=== PATIENT | female | born 1990 | race Caucasian/White ===

== ENCOUNTER 2018-12-27 08:19 | Emergency (ER) | payer BC ==
[2018-12-27] MEDS ORDERED: ACETAMINOPHEN TAB 500 MG TAB PO STA (08:26)
[2018-12-27] MEDS ORDERED: IBUPROFEN 600 MG STARTER PACK 4 TAB BTL PO STA (08:26)
[2018-12-27] MEDS ORDERED: OSELTAMIVIR 75 MG CAP PO STA (08:27)
[2018-12-27] MEDS ORDERED: SODIUM CHLORIDE 0.9% 1,000 ML IV ONE (08:31)
[2018-12-27] MEDS ORDERED: IPRATROPIUM-ALBUTEROL 3 ML NEB INHALATION STA (08:31)
[2018-12-27] MEDS ORDERED: ONDANSETRON 4 MG/2 ML VIAL IVP STA (08:32)
--- NOTE | 2018-12-27 08:36 | ED ---
Fever HPI - General Chief Complaint: Fever Stated Complaint: Congestion Time Seen by Provider: 12/27/18 08:21 Source: patient, RN notes reviewed, old records reviewed Mode of arrival: ambulatory Limitations: no limitations - History of Present Illness Initial Comments: Patient is a 28-year-old female who presents emergency room today with 1 day of fever or chills, cough congestion and multiple episodes of vomiting. Patient states she's not been able to hold any of her medications down including Motrin or Tylenol. She does state that her daughter tested positive for flu a few days ago. Patient complains of bodyaches. She denies any hematemesis or changes in stools or urination. She denies chance of . Patient states that she's had no associated sick contacts that she is aware of. - Related Data Home Medications Medication Instructions Recorded Confirmed Cholecalciferol [Vitamin D3] 1,000 unit PO DAILY 12/27/18 12/27/18 Ergocalciferol [Vitamin D2 50,000 units PO WE 12/27/18 12/27/18 (DRISDOL)] Sertraline [Zoloft] 50 mg PO DAILY 12/27/18 12/27/18 Previous Rx's Medication Instructions Recorded Albuterol Inhaler [Ventolin Hfa 1 - 2 puff INHALATION RT-Q6H PRN 12/27/18 Inhaler] #1 inhaler Ondansetron [Zofran] 4 mg PO Q8HR PRN #20 tab 12/27/18 Oseltamivir [Tamiflu] 75 mg PO Q12HR #10 cap 12/27/18 Allergies Allergy/AdvReac Type Severity Reaction Status Date / Time No Known Allergies Allergy Verified 12/27/18 09:01 Review of Systems ROS Statement: Those systems with pertinent positive or pertinent negative responses have been documented in the HPI. ROS Other: All systems not noted in ROS Statement are negative. Past Medical History Past Medical History: No Reported History Additional Past Medical History / Comment(s): slightly elevated b/p during end of only. no prev hx. History of Any Multi-Drug Resistant Organisms: None Reported Additional Past Surgical History / Comment(s): left knee 2002, myringotomy as child Past Psychological History: Depression Smoking Status: Never smoker Past Alcohol Use History: Occasional Past Drug Use History: None Reported - Past Family History Father Family Medical History: No Reported History General Exam - General Exam Comments Initial Comments: Patient is alert and oriented 28-year-old female. Patient appears dehydrated, weak Limitations: no limitations General appearance: alert, in no apparent distress Head exam: Present: atraumatic, normocephalic, normal inspection Eye exam: Present: normal appearance, PERRL, EOMI. Absent: scleral icterus, conjunctival injection, periorbital swelling ENT exam: Present: normal exam, mucous membranes dry. Absent: normal oropharynx (Erythema), mucous membranes moist, TM's normal bilaterally ( Erythematous TMs. No evidence of effusion) Neck exam: Present: normal inspection. Absent: tenderness, meningismus, lymphadenopathy Respiratory exam: Present: normal lung sounds bilaterally Cardiovascular Exam: Present: regular rate, normal rhythm, normal heart sounds. Absent: systolic murmur, diastolic murmur, rubs, gallop, clicks GI/Abdominal exam: Present: soft, normal bowel sounds. Absent: distended, tenderness, guarding, rebound, rigid Extremities exam: Present: normal inspection, full ROM, normal capillary refill. Absent: tenderness, pedal edema, joint swelling, calf tenderness Back exam: Present: normal inspection Neurological exam: Present: alert, oriented X3, CN II-XII intact Psychiatric exam: Present: normal affect, normal mood Skin exam: Present: warm, dry, intact, normal color. Absent: rash Course Vital Signs 12/27/18 12/27/18 12/27/18 08:21 09:36 10:05 Temperature 102.9 F H 100.3 F H Pulse Rate 130 H 125 H 122 H Respiratory 20 18 Rate Blood Pressure 110/56 97/59 O2 Sat by Pulse 95 94 L Oximetry Medical Decision Making - Lab Data Lab Results 12/27/18 12/27/18 12/27/18 Range/Units 08:39 08:58 08:58 Urine Color Yellow Urine Appearance Cloudy H (Clear) Urine pH 5.5 (5.0-8.0) Ur Specific [place] 1.030 (1.001-1.035) Urine Protein 1+ H (Negative) Urine Glucose (UA) Negative (Negative) Urine Ketones Trace H (Negative) Urine Blood Negative (Negative) Urine Nitrite Negative (Negative) Urine Bilirubin Negative (Negative) Urine Urobilinogen <2.0 (<2.0) mg/dL Ur Leukocyte Esterase Negative (Negative) Urine RBC 2 (0-5) /hpf Urine WBC 2 (0-5) /hpf Ur Squamous Epith Cells 18 H (0-4) /hpf Urine Bacteria Rare H (None) /hpf Urine Mucus Many H (None) /hpf Urine HCG, Qual Not Detected (Not Detectd) Influenza Type A RNA Detected H (Not Detectd) Influenza Type B (PCR) Not Detected (Not Detectd) - Radiology Data Radiology results: report reviewed Chest x-rays negative for any acute cardio coronary process. Disposition Clinical Impression: Influenza A, Nausea & vomiting, Dehydration Disposition: HOME SELF-CARE Condition: Good Instructions (If sedation given, give patient instructions): Influenza (ED) Additional Instructions: Patient advised to follow-up with primary care provider. Patient should alternate Motrin and Tylenol. Use nausea medicine instructed. SOAKING USE INHALER NEEDED FOR SHORTNESS OF BREATH. PATIENT SHOULD REST, REMAIN HYDRATED. Prescriptions: Albuterol Inhaler [Ventolin Hfa Inhaler] 1 - 2 puff INHALATION RT-Q6H PRN #1 inhaler PRN Reason: Shortness Of Breath Ondansetron [Zofran] 4 mg PO Q8HR PRN #20 tab PRN Reason: Nausea Oseltamivir [Tamiflu] 75 mg PO Q12HR #10 cap Is patient prescribed a controlled substance at d/c from ED?: No Referrals: Sujit Perez MD [Primary Care Provider] - 1-2 days Time of Disposition: 10:43
[2018-12-27 09:45] LABS: Appearance,Urine Cloudy (Clear); Bacteria,Urine Rare /hpf; Bilirubin,Urine Negative (Negative); Blood,Urine Negative (Negative); Color,Urine Yellow; Glucose,Urine (UA) Negative (Negative); Ketones,Urine Trace (Negative); Leukocyte Esterase,Urine Negative (Negative); Mucus,Urine Many /hpf; Nitrite,Urine Negative (Negative); PH, Urine 5.5 (5.0-8.0); Protein,Urine 1+ (Negative); RBC,Urine 2 /hpf (0-5); Squamous Epithelial Cell,Urine 18 /hpf (0-4); Urobilinogen,Urine <2.0 mg/dL (<2.0); WBC,Urine 2 /hpf (0-5)
[2018-12-27 10:09] VITALS: RESP 18
--- NOTE | 2018-12-27 10:24 | XR ---
EXAMINATION TYPE: XR chest 2V DATE OF EXAM: 12/27/2018 COMPARISON: NONE HISTORY: Chest pain TECHNIQUE: Frontal and lateral views of the chest are obtained. FINDINGS: There is no focal air space opacity, pleural effusion, or pneumothorax seen. The cardiac silhouette size is within normal limits. The osseous structures are intact. IMPRESSION: No acute cardiopulmonary process.
[2018-12-27 11:15] VITALS: BP 110/63; PULSE 95; TEMP 98.8
== END 2018-12-27 11:14 | disposition home or self-care (01) ==
LOC: MERGE 08:19 → EC 08:19
DX: J10.1 Influenza due to other identified influenza virus with other respiratory manifestations (principal); E86.0 Dehydration; R11.2 Nausea with vomiting, unspecified; F32.9 Major depressive disorder, single episode, unspecified; Z79.899 Other long term (current) drug therapy
CPT/HCPCS: 94640; 81001; 81025; 87502; 71046; 99284; 96374; 96361; J2405

== ENCOUNTER → 2019-08-31 | Outpatient (CLI) | payer OTHER ==
[2019-08-31 19:29] LABS: Total Protein,CSF 36 mg/dL (12-60)
[2019-08-31 20:13] LABS: Appearance,CSF Clear; CSF Tube Number 4
[2019-08-31 20:14] LABS: CSF Tube Volume 3; Nucleated Cells, CSF 3 u/L (0-5); Red Blood Cell,CSF 0 u/L (0-10)
== END | disposition home or self-care (01) ==
LOC: LABWHC1 15:00
PROVIDERS: ATTEND Nurse Practitioner Acute Care
DX: R42 Dizziness and giddiness (principal); R20.2 Paresthesia of skin; R90.82 White matter disease, unspecified
CPT/HCPCS: 36415; 82040; 82042; 82784; 83873; 83916; 84157; 87801; 89050

== ENCOUNTER → 2019-09-14 | Outpatient (CLI) | payer OTHER | END | disposition home or self-care (01) | LOC: LABWHC1 16:46 | PROVIDERS: ATTEND Nurse Practitioner Acute Care | DX: G35 Multiple sclerosis (principal); E55.9 Vitamin D deficiency, unspecified | CPT/HCPCS: 36415; 82306; 86787 ==

== ENCOUNTER → 2019-11-24 | Outpatient (CLI) | payer OTHER ==
--- NOTE | 2019-11-24 22:15 | CONS ---
CONSULTATION REASON FOR CONSULTATION: Hypersomnia. 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 She was recently diagnosed having MS and the diagnosis was established by lumbar puncture and she has not been started on treatment yet. At the same time, the patient has features of obstructive sleep apnea. She was referred to me for sleep apnea evaluation knowing that she snores or quits breathing. She has been occasional waking up gasping for air. Her mother has obstructive sleep apnea. She goes to bed between 8-9 p.m. wakes up at 5 a.m. in the morning. She is living with her boyfriend and she has a 3-year-old child at home. Her weight is up and currently her BMI is down to 39.7. No substance abuse. She takes caffeinated beverages in the morning to keep herself well stimulated. No history of any motor vehicle accident because of feeling drowsy or sleepy. No head trauma. No history of any stroke. PAST MEDICAL HISTORY: 1. Obesity. 2. Multiple sclerosis. PAST SURGICAL HISTORY: Includes lumbar puncture, , surgeries on her eardrums and knee surgery. DRUG ALLERGIES: Not known. OUTPATIENT MEDICATION LIST: Includes vitamin D 58780 units once a week. SOCIAL HISTORY: Nonsmoker. No history of alcohol. No history of IV drugs. FAMILY HISTORY: Her mother has obstructive sleep apnea and she has also been diagnosed having MS. REVIEW OF SYSTEMS: Fourteen-point review of system was done. Positive findings are mentioned in history of present illness. She is currently tired and fatigued. No insomnia. No sleepwalking. No restlessness in lower extremities. She was having some numbness and tingling in lower extremities bilaterally. No ataxia. No vision loss. No double vision. No difficulty in swallowing. No headaches. No nighttime heartburn, chest pain, shortness of breath, cough or sputum production. PHYSICAL EXAMINATION: VITAL SIGNS: BP is 123/80, pulse 90. Respirations 16, temp 98.5. Saturation 99% on room air. Height is 5 feet 2 inches, weight 221, and neck size 15.5 inches, BMI 39.7. General appearance, calm and comfortable. Head is atraumatic, normocephalic. NECK: Supple. No JVD. No goiter or neck masses. Bilateral tonsillar enlargement. Mallampati class 2. LUNGS: Clear to auscultation. HEART: Sounds are regular rate and rhythm. Normal S1, S2. No S3, S4. No murmurs. ABDOMEN: Soft, nontender. No organomegaly. EXTREMITIES: No edema. No cyanosis or clubbing. NEUROLOGIC: She is awake, and alert. There are no focal neurological deficits. PSYCHIATRIC: Negative for anxiety or depression. IMPRESSION: 1. Chronic hypersomnia Tok score is currently at 15, rule out obstructive sleep apnea. The patient has symptoms anatomic features to support that. Hypersomnia and fatigue could be also manifestations of multiple sclerosis. 2. Obesity with a BMI of 39.7. 3. Tonsillar enlargement. PLAN: 1. Proceed with a screening polysomnogram. 2. Encourage weight loss. 3. Follow up with Neurology regarding treatment of her MS. 4. Will follow up with me in the sleep center after the sleep study is completed to discuss treatment options especially if diagnosis of sleep apnea is established. We will continue to follow. MMODL / IJN: [id number] /
== END | disposition home or self-care (01) ==
LOC: SLEEP 14:32
PROVIDERS: ATTEND Internal Medicine Critical Care Medicine
DX: G47.19 Other hypersomnia (principal); E66.9 Obesity, unspecified; J35.1 Hypertrophy of tonsils; R53.83 Other fatigue; Z83.6 Family history of other diseases of the respiratory system; Z68.39 Body mass index [BMI] 39.0-39.9, adult; Z79.899 Other long term (current) drug therapy
CPT/HCPCS: 99211

== ENCOUNTER → 2020-03-18 | Outpatient (CLI) | payer OTHER ==
[2020-03-18 09:27] LABS: Basophils # (A) 0.1 k/uL (0-0.2); Basophils % (A) 1 %; Eosinophils # (A) 0.1 k/uL (0-0.7); Eosinophils % (A) 1 %; HCT 43.2 % (34.0-46.0); HGB 13.9 gm/dL (11.4-16.0); Lymphocytes % (A) 24 %; MCH 28.6 pg (25.0-35.0); MCHC 32.1 g/dL (31.0-37.0); MCV 89.2 fL (80.0-100.0); Mean Platelet Volume 7.4; Monocytes # (A) 0.4 k/uL (0-1.0); Monocytes % (A) 5 %; Neutrophils # (A) 5.5 k/uL (1.3-7.7); Neutrophils % (A) 67 %; Platelet Count 288 k/uL (150-450); RBC 4.84 m/uL (3.80-5.40); RDW 13.9 % (11.5-15.5); WBC 8.2 k/uL (3.8-10.6)
[2020-03-18 15:55] LABS: African American GFR (CKD) 113.9 (60.0-200.0); Albumin 4.1 g/dL (3.80-4.90); Albumin/Globulin Ratio 1.64 (1.60-3.17); Anion Gap 9.2 mmol/L (4.00-12.00); BUN/Creat Ratio 18.75 Ratio (12.00-20.00); Calcium 9.3 mg/dL (8.7-10.3); Carbon Dioxide 24.8 mmol/L (21.6-31.8); Globulin 2.5 g/dL (1.6-3.3); Non-African American GFR(CKD) 98.2 (60.0-200.0); Potassium 4.3 mmol/L (3.5-5.5); Total Bilirubin 0.4 mg/dL (0.2-1.2); Total Protein 6.6 g/dL (6.2-8.2)
== END | disposition home or self-care (01) ==
LOC: LABWHC1 08:32
PROVIDERS: ATTEND Nurse Practitioner Acute Care
DX: G35 Multiple sclerosis (principal); E55.9 Vitamin D deficiency, unspecified; Z51.81 Encounter for therapeutic drug level monitoring
CPT/HCPCS: 36415; 80053; 82306; 82607; 84207; 85025; 86787

== ENCOUNTER → 2020-04-29 | Outpatient (CLI) | payer OTHER | END | disposition home or self-care (01) | LOC: LABWHC1 13:25 | PROVIDERS: ATTEND Nurse Practitioner Acute Care | DX: G35 Multiple sclerosis (principal); Z51.81 Encounter for therapeutic drug level monitoring | CPT/HCPCS: 36415; 86787; 87798 ==

== ENCOUNTER → 2020-05-27 | Outpatient (CLI) | payer OTHER | END | disposition home or self-care (01) | LOC: LABWHC1 12:02 | PROVIDERS: ATTEND Nurse Practitioner Acute Care | DX: G35 Multiple sclerosis (principal); Z51.81 Encounter for therapeutic drug level monitoring | CPT/HCPCS: 36415; 86705; 87798 ==

== ENCOUNTER → 2020-07-01 | Outpatient (CLI) | payer OTHER ==
--- NOTE | 2020-07-01 13:13 | XR ---
EXAMINATION TYPE: XR lumbosacral spine min 4V DATE OF EXAM: 07/01/2020 CLINICAL HISTORY: Dorsalgia. Pain of lower back. Left leg numbness. TECHNIQUE: Frontal, lateral, and oblique images of the lumbar spine are obtained. COMPARISON: None FINDINGS: There are 5 lumbar type vertebral bodies identified. The lumbar spine shows satisfactory alignment without evidence of acute fracture or dislocation. Vertebral body heights and disk space he ights are within normal limits. Mild endplate anterior marginal osteophytic spurring. Oblique images show no evidence of spondylolysis. No evidence of spondylolisthesis. Normal osseous mineralization. T he overlying soft tissue appears unremarkable. IMPRESSION: 1. No acute fracture or dislocation is seen in the lumbar spine. 2. Mild degenerative disc disease endplate spurring.
[2020-07-01 16:38] LABS: Chol/HDL Ratio 3.31
== END | disposition home or self-care (01) ==
LOC: LABWHC1 08:45
PROVIDERS: ATTEND Physician Assistant
DX: M51.36 Other intervertebral disc degeneration, lumbar region (principal); Z13.220 Encounter for screening for lipoid disorders
CPT/HCPCS: 36415; 72110; 80061

== ENCOUNTER 2020-09-29 10:34 | Day surgery (SDC) | payer OTHER ==
[2020-09-27 17:49] VITALS: BMI 38.7
[~2020-09-29 10:34] MED LIST: LACTATED RINGERS 1,000 ML IV SCH
[2020-09-29 10:51] VITALS: RESP 16; TEMP 98.5
[2020-09-29] MEDS ORDERED: MIDAZOLAM 2 MG/2 ML VIAL ONE (11:53)
[2020-09-29] MEDS ORDERED: fentaNYL (PF) 50 MCG/ML 2 ML AMP ONE (11:53)
[2020-09-29] MEDS ORDERED: PROPOFOL 10 MG/ML 20 ML VIAL IV ONE (11:53)
--- NOTE | 2020-09-29 12:02 | P.GSHP ---
History of Present Illness H&P Date: 09/29/20 Chief Complaint: GI bleed, internal hemorrhoids Is a 28-year-old female presents today for colonoscopy. Patient has issues with hemorrhoids. He is also some rectal bleeding. Past Medical History Past Medical History: No Reported History Additional Past Medical History / Comment(s): Hx pulmonary valve stenosis at . slightly elevated b/p R/T Rx in past. Multiple Sclerosis, NT BLE. 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, Dental procedures Past Anesthesia/Blood Transfusion Reactions: No Reported Reaction Smoking Status: Never smoker - Past Family History Father Family Medical History: No Reported History Brother(s) Family Medical History: Cancer Additional Family Medical History / Comment(s): skin cancer Medications and Allergies Home Medications Medication Instructions Recorded Confirmed Type Cholecalciferol [Vitamin D3] 2,000 unit PO DAILY 12/27/18 09/29/20 History Acetaminophen [Tylenol Extra 500 - 1,000 mg PO DIRECTED PRN 09/27/20 09/29/20 History Strength] Allergies Allergy/AdvReac Type Severity Reaction Status Date / Time No Known Allergies Allergy Verified 09/29/20 11:00 Surgical - Exam Vital Signs Temp Pulse Resp BP Pulse Ox 98.5 F 77 16 146/97 100 09/29/20 10:48 09/29/20 10:48 09/29/20 10:48 09/29/20 10:48 09/29/20 10:48 - General well developed, well nourished, no distress - Eyes PERRL - ENT normal pinna - Neck no masses - Respiratory normal expansion - Cardiovascular Rhythm: regular - Abdomen Abdomen: soft, non tender Assessment and Plan Assessment: History of hemorrhoids. Rectal bleeding. We'll perform colonoscopy.
--- NOTE | 2020-09-29 12:14 | P.OP ---
Date of Procedure: 09/29/20 Preoperative Diagnosis: GI bleed Postoperative Diagnosis: Internal and external hemorrhoids Procedure(s) Performed: Colonoscopy Anesthesia: MAC Surgeon: Gian Son Pathology: none sent Condition: stable Disposition: PACU Description of Procedure: The patient's placed on the endoscopy table in the lateral position.. She received IV sedation. Digital rectal exam was performed which revealed internal and external hemorrhoids. The possible colonoscope was then placed patient anus and passed throughout the entire colon. The ileocecal valve was visualized. The cecum, ascending and transverse colon appeared normal. The descending and sigmoid colon appeared normal. Scope was withdrawn for patient. There is no evidence of any GI bleed. Resume that any bleeding was due to hemorrhoids
[2020-09-29 12:34] VITALS: BP 118/81; PULSE 79
== END 2020-09-29 12:42 | disposition home or self-care (01) ==
LOC: ORWHC2ENDO 10:34
PROVIDERS: ATTEND Surgery
DX: K64.8 Other hemorrhoids (principal); K64.4 Residual hemorrhoidal skin tags; K62.5 Hemorrhage of anus and rectum; K92.2 Gastrointestinal hemorrhage, unspecified; G35 Multiple sclerosis; Z98.890 Other specified postprocedural states; Z80.8 Family history of malignant neoplasm of other organs or systems; E66.9 Obesity, unspecified; Z68.38 Body mass index [BMI] 38.0-38.9, adult; Z79.899 Other long term (current) drug therapy
CPT/HCPCS: 81025; 45378; J2250; J3010; J2704

== ENCOUNTER 2020-09-30 05:54 | Day surgery (SDC) | payer OTHER ==
[2020-09-27 17:31] VITALS: BMI 38.7
[~2020-09-30 05:54] MED LIST changes: +ACETAMINOPHEN TAB 500 MG TAB PO ONE; +DEXAMETHASONE SOD PHOSPHATE 4 MG/ML 1 ML VIAL IV ONE; +HYDROmorphone 0.5 MG/0.5 ML SYRINGE IVP PRN; +LIDOCAINE 1% (10MG/ML) FOR IV START INTRADERMA PRN; +ONDANSETRON 4 MG/2 ML VIAL IVP ONE; +Pre Op ABX Message 1 EACH MISC MISCELLANE ONE; +SCOPOLAMINE 1.5MG/72HR PATCH TRANSDERM ONE
[2020-09-30] MEDS ORDERED: HEPARIN SODIUM,PORCINE 5,000 UNIT/ML 1 ML VIAL SQ ONE (06:00)
[2020-09-30] MEDS ORDERED: NA PHOS,M-B/NA PHOS,DI-BA 133 ML ENEMA RECTAL ONE (06:17)
[2020-09-30] MEDS ORDERED: LACTATED RINGERS 1,000 ML IV ONE (06:17)
[2020-09-30] MEDS ORDERED: LIDOCAINE 1% INJ 10MG/ML (20 ML MDV) ONE (07:49)
[2020-09-30] MEDS ORDERED: MIDAZOLAM 2 MG/2 ML VIAL ONE (07:49)
[2020-09-30] MEDS ORDERED: PROPOFOL 10 MG/ML 20 ML VIAL IV ONE (07:49)
[2020-09-30] MEDS ORDERED: SUCCINYLCHOLINE CHLORIDE VIAL 200 MG/10 ML VIAL IV ONE (07:49)
[2020-09-30] MEDS ORDERED: fentaNYL (PF) 50 MCG/ML 2 ML AMP ONE (07:49)
[2020-09-30] MEDS ORDERED: KETOROLAC 15 MG/ML 1 ML VIAL ONE (07:49)
[2020-09-30] MEDS ORDERED: SODIUM CHLORIDE 0.9% 50 ML with ceFAZolin 2,000 MG IV ONE ×2 (08:10)
[2020-09-30] MEDS ORDERED: BUPIVACAINE (PF) 0.5% 30 ML VIAL SQ ONE (08:19)
[2020-09-30] MEDS ORDERED: GELATIN SPONGE,ABSORB (LARGE) 1 EACH SPONGE TOPICAL ONE (08:33)
--- NOTE | 2020-09-30 08:44 | P.GSHP ---
History of Present Illness H&P Date: 09/30/20 Chief Complaint: Internal and external hemorrhoids This is a 30-year-old female who presents today for internal and external hemorrhoids. Patient had complaints of anal pain and bleeding and itching. Past Medical History Past Medical History: No Reported History Additional Past Medical History / Comment(s): Hx pulmonary valve stenosis at . slightly elevated b/p R/T Rx in past. Multiple Sclerosis, NT BLE. 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, Dental procedures Past Anesthesia/Blood Transfusion Reactions: No Reported Reaction Smoking Status: Never smoker - Past Family History Father Family Medical History: No Reported History Brother(s) Family Medical History: Cancer Additional Family Medical History / Comment(s): skin cancer Medications and Allergies Home Medications Medication Instructions Recorded Confirmed Type Cholecalciferol [Vitamin D3] 2,000 unit PO DAILY 12/27/18 09/29/20 History Acetaminophen [Tylenol Extra 500 - 1,000 mg PO DIRECTED PRN 09/27/20 09/29/20 History Strength] Allergies Allergy/AdvReac Type Severity Reaction Status Date / Time No Known Allergies Allergy Verified 09/29/20 11:00 Surgical - Exam Vital Signs Temp Pulse Resp BP Pulse Ox 97.8 F 85 18 144/82 97 09/30/20 06:16 09/30/20 06:16 09/30/20 06:16 09/30/20 06:16 09/30/20 06:16 - General well developed, well nourished, no distress - Eyes PERRL - ENT normal pinna - Neck no masses - Respiratory normal expansion - Cardiovascular Rhythm: regular - Abdomen Abdomen: soft, non tender - Rectum Internal and external hemorrhoids Assessment and Plan Assessment: Internal and external hemorrhoids. We'll perform hemorrhoidectomy.
--- NOTE | 2020-09-30 08:51 | P.OP ---
Date of Procedure: 09/30/20 Preoperative Diagnosis: Internal and external hemorrhoids Postoperative Diagnosis: Internal and external hemorrhoids Procedure(s) Performed: Internal and external hemorrhoidectomy Anesthesia: MAHOGANY Surgeon: Gian Son Estimated Blood Loss (ml): 10 Pathology: other (Internal and external hemorrhoids) Condition: stable Disposition: PACU Description of Procedure: The patient's placed on the operative table in the prone position after receiving general anesthesia. Her anus was prepped and draped usual fashion. The anus was injected 1% local Xylocaine. The patient had a large left anterior hemorrhoidal column and a right posterior hemorrhoid column. The bivalved anal retractor was placed anus. The right posterior hemorrhoidal column was grasped with a Allis clamp and then using Harmonic scissors the rectus performed. The mucosal defect was reapproximated using 3-0 Vicryl suture. Next the left lateral hemorrhoidal column was dissected in identical fashion. The is suspected for hemostasis. There is no bleeding seen. The patient was sent to recovery room in stable condition.
[2020-09-30 08:57] VITALS: TEMP 98
[2020-09-30 09:58] VITALS: RESP 18
[2020-09-30 10:27] VITALS: BP 128/74; PULSE 75
== END 2020-09-30 10:40 | disposition home or self-care (01) ==
LOC: OR 05:54
PROVIDERS: ATTEND Surgery
DX: K64.4 Residual hemorrhoidal skin tags (principal); K64.8 Other hemorrhoids; G35 Multiple sclerosis; Z98.890 Other specified postprocedural states; Z80.8 Family history of malignant neoplasm of other organs or systems
CPT/HCPCS: 81025; 88304; 46255; J2250; J0330; J1644; J1100; J2405; J0690; J2001; J3010; J1885; J2704

== ENCOUNTER → 2021-03-31 | Outpatient (CLI) | payer OTHER ==
[2021-03-31 19:24] LABS: African American GFR (CKD) 139.8 (60.0-200.0); Albumin 4.2 g/dL (3.80-4.90); Albumin/Globulin Ratio 1.5 (1.60-3.17); Anion Gap 7.2 mmol/L (4.00-12.00); Calcium 9.1 mg/dL (8.7-10.3); Carbon Dioxide 26.8 mmol/L (21.6-31.8); Globulin 2.8 g/dL (1.6-3.3); Non-African American GFR(CKD) 120.6 (60.0-200.0); Potassium 4.6 mmol/L (3.5-5.5); Total Bilirubin 0.5 mg/dL (0.2-1.2)
[2021-03-31 20:51] LABS: Basophils # (A) 0.02 X 10*3/uL (0.00-0.10); Basophils % (A) 0.5 %; Eosinophils % (A) 2.4 %; HCT 40.4 % (37.2-46.3); Lymphocytes # (A) 1.39 X 10*3/uL (0.90-5.00); MCH 28.6 pg (27.0-32.0); MCHC 32.2 g/dL (32.0-37.0); Mean Platelet Volume 11.7 fL (9.5-12.2); Monocytes # (A) 0.37 X 10*3/uL (0.20-1.00); Neutrophils % (A) 53.9 %; Platelet Count 283 X 10*3/uL (140-440); RBC 4.54 X 10*6/uL (4.10-5.20); RDW 13.3 % (11.5-14.5); WBC 4.09 X 10*3/uL (4.50-10.00)
== END | disposition home or self-care (01) ==
LOC: LABWHC1 10:41
PROVIDERS: ATTEND Nurse Practitioner Acute Care
DX: G35 Multiple sclerosis (principal); E55.9 Vitamin D deficiency, unspecified; Z51.81 Encounter for therapeutic drug level monitoring
CPT/HCPCS: 36415; 80053; 82306; 85025

== ENCOUNTER → 2021-04-19 | Outpatient (CLI) | payer OTHER ==
[~2021-04-19] MED LIST changes: -ACETAMINOPHEN TAB 500 MG TAB PO ONE; -DEXAMETHASONE SOD PHOSPHATE 4 MG/ML 1 ML VIAL IV ONE; -HYDROmorphone 0.5 MG/0.5 ML SYRINGE IVP PRN; -LACTATED RINGERS 1,000 ML IV SCH; -LIDOCAINE 1% (10MG/ML) FOR IV START INTRADERMA PRN; -ONDANSETRON 4 MG/2 ML VIAL IVP ONE; -Pre Op ABX Message 1 EACH MISC MISCELLANE ONE; -SCOPOLAMINE 1.5MG/72HR PATCH TRANSDERM ONE; +cefTRIAXone 500 MG VIAL IM NR
[2021-04-19 14:11] VITALS: BP 133/83; PULSE 84; RESP 16; TEMP 98.9
== END | disposition home or self-care (01) ==
LOC: PROCWHC3 13:30
PROVIDERS: ATTEND Physician Assistant
DX: A54.02 Gonococcal vulvovaginitis, unspecified (principal)
CPT/HCPCS: 96372; J0696

== ENCOUNTER → 2022-01-16 | Outpatient (CLI) | payer OTHER ==
[2022-01-16 18:20] LABS: Basophils # (A) 0.02 X 10*3/uL (0.00-0.10); Basophils % (A) 0.5 %; Eosinophils # (A) 0.13 X 10*3/uL (0.04-0.35); HCT 39.3 % (37.2-46.3); Immature Grans, Automated 0.2 %; Lymphocytes # (A) 1.46 X 10*3/uL (0.90-5.00); Lymphocytes % (A) 33.3 %; MCH 28.6 pg (27.0-32.0); MCHC 33.1 g/dL (32.0-37.0); MCV 86.4 fL (80.0-97.0); Mean Platelet Volume 11.6 fL (9.5-12.2); Monocytes # (A) 0.37 X 10*3/uL (0.20-1.00); Monocytes % (A) 8.4 %; NRBC Per 100 WBC 0 /100 WBCS (0.0-0.0); Neutrophils % (A) 54.6 %; Platelet Count 259 X 10*3/uL (140-440); RBC 4.55 X 10*6/uL (4.10-5.20); RDW 13.7 % (11.5-14.5); WBC 4.39 X 10*3/uL (4.50-10.00)
[2022-01-16 19:05] LABS: African American GFR (CKD) 135.5 (60.0-200.0); Albumin 4.3 g/dL (3.8-4.9); Albumin/Globulin Ratio 1.55 (1.60-3.17); Anion Gap 13.9 mmol/L (10.00-18.00); BUN/Creat Ratio 14.15 Ratio (12.00-20.00); Blood Urea Nitrogen 9.1 mg/dL (9.0-27.0); Calcium 9.4 mg/dL (8.7-10.3); Carbon Dioxide 22.8 mmol/L (20.0-27.5); Globulin 2.8 g/dL (1.6-3.3); Non-African American GFR(CKD) 116.9 (60.0-200.0); Potassium 4.5 mmol/L (3.5-5.5); Total Bilirubin 0.3 mg/dL (0.30-1.20); Total Protein 7.1 g/dL (6.2-8.2)
== END | disposition home or self-care (01) ==
LOC: LABWHC1 12:02
PROVIDERS: ATTEND Psychiatry & Neurology Neurology
DX: G35 Multiple sclerosis (principal); E55.9 Vitamin D deficiency, unspecified; E53.9 Vitamin B deficiency, unspecified
CPT/HCPCS: 36415; 80053; 82306; 82607; 84207; 85025

== ENCOUNTER 2022-06-03 16:12 | Observation (INO) | payer OTHER ==
[2022-06-03] MEDS ORDERED: diphenhydrAMINE 50 MG/ML 1 ML VIAL IVP STA (16:20)
[2022-06-03] MEDS ORDERED: MORPHINE SULFATE 4 MG/ML SYRINGE IV STA (16:20)
[2022-06-03] MEDS ORDERED: ONDANSETRON 4 MG/2 ML VIAL IVP STA (16:20)
[2022-06-03] MEDS ORDERED: KETOROLAC 15 MG/ML 1 ML VIAL IVP STA (16:20)
[2022-06-03] MEDS ORDERED: PANTOPRAZOLE 40 MG/10 ML VIAL IVP STA (16:20)
[2022-06-03] MEDS ORDERED: SODIUM CHLORIDE 0.9% 1,000 ML IV STA (16:20)
--- NOTE | 2022-06-03 16:28 | ED ---
General Adult HPI - General Chief complaint: Vaginal Bleeding Stated complaint: Abd Pain Time Seen by Provider: 06/03/22 16:13 Source: patient, EMS, RN notes reviewed, old records reviewed Mode of arrival: EMS Limitations: no limitations - History of Present Illness Initial comments: Patient is a 31-year-old female with past medical history remarkable for MS who is and actively miscarrying beginning at approximately 6 weeks gestation presents emergency department for worsening lower abdominal pain as well as pelvic pain. Patient has been actively miscarrying for approximately 10-12 days at this point. Over the last 3-4 days she has been having heavier bleeding. She has seen her BATTERY MECHANIC and they're aware of the miscarriage. Was being managed medically at home. Was started on Tylenol threes but pain got worse today which is why she presents for further evaluation. States that the bleeding as well as tissue present in the vaginal discharge has decreased. Endorses 1 episode of vomiting as numbers nonbloody. Endorses nausea when the pain is severe. States the Tylenol starter pack was not improving her symptoms which is why she called EMS today. Denies any worsening weakness. Denies any chest pain, shortness breath. Denies any urinary complaints. His no other acute complaint at this time. - Related Data Home Medications Medication Instructions Recorded Confirmed Acetaminophen-Codeine 300-30mg 1 - 2 tab PO Q6H PRN 06/03/22 06/03/22 [Tylenol w/codeine #3] Cholecalciferol [Vitamin D3 (25 50 mcg PO DAILY 06/03/22 06/03/22 Mcg = 1000 Iu)] Multivitamins, Thera [Multivitamin 1 tab PO DAILY 06/03/22 06/03/22 (formulary)] Allergies Allergy/AdvReac Type Severity Reaction Status Date / Time No Known Allergies Allergy Verified 06/03/22 17:46 Review of Systems ROS Statement: Those systems with pertinent positive or pertinent negative responses have been documented in the HPI. Review of Systems: CONST: Denies fever EYES: Denies blurry vision ENT: Denies nasal congestion C/V: Denies Chest pain RESP: Denies shortness of breath GI: Endorses lower abdominal pain, pelvic pain. : Endorses active vaginal bleeding with known active miscarriage. SKIN: Denies rash. MSK: Denies joint pain. NEURO: Denies headache ROS Other: All systems not noted in ROS Statement are negative. Past Medical History Past Medical History: No Reported History Additional Past Medical History / Comment(s): Hx pulmonary valve stenosis at . slightly elevated b/p R/T Rx in past. Multiple Sclerosis, NT BLE. 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 HEAD: Normal with no signs of head trauma. EYES: PERRLA, EOMI, conjunctiva normal, no discharge. ENT: Hearing grossly intact, normal oropharynx. RESPIRATORY: Clear breath sounds bilaterally. No wheezes, rales, or rhonchi. No respiratory distress. C/V: Regular rate and rhythm. S1 and S2 auscultated, no edema, peripheral pulses 2+ and intact throughout ABD: Abdomen is soft, nondistended. Tender to palpation in the right lower quadrant medial to McBurney's point. No guarding. No rebound tenderness. No peritoneal signs. EXT: Normal range of motion, no obvious deformity SKIN: No rashes or lesions observed on exposed skin. NEURO: Alert and oriented 4. Limitations: no limitations Course Vital Signs 06/03/22 06/03/22 16:15 18:29 Temperature 98.0 F Pulse Rate 81 94 Respiratory 20 20 Rate Blood Pressure 138/88 132/84 O2 Sat by Pulse 99 98 Oximetry Medical Decision Making - Medical Decision Making Based on the patient's presentation and physical exam, she is a 31-year-old female who is actively miscarrying at approximately 6 weeks gestation presented with worsening abdominal pain. Vital signs within normal limits. We'll obtain abdominal laboratory studies as well as quantitative hCG and ultrasound. She'll be treated with IV analgesia and fluids. Patient was in agreement this plan. Patient's BATTERY MECHANIC is Dr. Edmonds with whom she has an appointment tomorrow. Laboratory studies were remarkable for a beta hCG of 1600. Urine shows a large amount of blood. This is consistent with her miscarriage. Prior to imaging results returning, Dr. Edmonds called down to the emergency department. I did discuss the patient with him, as he was notified that she was here. He was in agreement with my plan. We'll obtain ultrasound imaging, and he is concerned as the pain is changed to primarily right lower quadrant for possible appendicitis. I share his concerns. If ultrasounds are unremarkable we will obtain CT imaging. Ultrasound showed complex material in the cervix. Consistent with incomplete miscarriage. Ultrasound for appendicitis was negative, however there is a small area of the elongated fluid likely a cyst. I discussed results of the patient would like to obtain CT imaging which she was in agreement. No appendicitis on CT imaging. There is evidence of active with the gestational sac in the lower uterine segment and cervical canal. I discussed results with the patient. Also contacted Dr. Edmonds, and we both agreed that the best is to admit for D&C. She'll be admitted in stable conditio n. Type and screen will be ordered. Patient is nothing by mouth after midnight. Patient was in agreement with this plan. - Lab Data Result diagrams: 06/03/22 17:03 06/03/22 17:03 Lab Results 06/03/22 06/03/22 06/03/22 Range/Units 17:03 17:03 17:03 WBC 9.2 (3.8-10.6) k/uL RBC 4.27 (3.80-5.40) m/uL Hgb 12.3 (11.4-16.0) gm/dL Hct 38.1 (34.0-46.0) % MCV 89.3 (80.0-100.0) fL MCH 28.8 (25.0-35.0) pg MCHC 32.2 (31.0-37.0) g/dL RDW 13.4 (11.5-15.5) % Plt Count 331 (150-450) k/uL MPV 8.2 Neutrophils % 76 % Lymphocytes % 16 % Monocytes % 5 % Eosinophils % 2 % Basophils % 0 % Neutrophils # 7.0 (1.3-7.7) k/uL Lymphocytes # 1.5 (1.0-4.8) k/uL Monocytes # 0.4 (0-1.0) k/uL Eosinophils # 0.1 (0-0.7) k/uL Basophils # 0.0 (0-0.2) k/uL PT 10.2 (9.0-12.0) sec INR 0.9 (<1.2) APTT 23.1 (22.0-30.0) sec Sodium (137-145) mmol/L Potassium (3.5-5.1) mmol/L Chloride (98-107) mmol/L Carbon Dioxide (22-30) mmol/L Anion Gap mmol/L BUN (7-17) mg/dL Creatinine (0.52-1.04) mg/dL Est GFR (CKD-EPI)AfAm (>60 ml/min/1.73 sqM) Est GFR (CKD-EPI)NonAf (>60 ml/min/1.73 sqM) Glucose (74-99) mg/dL Plasma Lactic Acid Gabe (0.7-2.0) mmol/L Calcium (8.4-10.2) mg/dL Total Bilirubin (0.2-1.3) mg/dL AST (14-36) U/L ALT (4-34) U/L Alkaline Phosphatase (38-126) U/L Total Protein (6.3-8.2) g/dL Albumin (3.5-5.0) g/dL Amylase (30-110) U/L Lipase (23-300) U/L HCG, Quant mIU/mL Urine Color Yellow Urine Appearance Cloudy H (Clear) Urine pH 6.5 (5.0-8.0) Ur Specific [place] 1.022 (1.001-1.035) Urine Protein Trace H (Negative) Urine Glucose (UA) Negative (Negative) Urine Ketones Negative (Negative) Urine Blood Large H (Negative) Urine Nitrite Negative (Negative) Urine Bilirubin Negative (Negative) Urine Urobilinogen <2.0 (<2.0) mg/dL Ur Leukocyte Esterase Small H (Negative) Urine RBC 1 (0-5) /hpf Urine WBC 7 H (0-5) /hpf Ur Squamous Epith Cells 10 H (0-4) /hpf Urine Bacteria Rare H (None) /hpf Urine Mucus Rare H (None) /hpf Blood Type Confirm 06/03/22 06/03/22 06/03/22 Range/Units 17:03 17:03 17:03 WBC (3.8-10.6) k/uL RBC (3.80-5.40) m/uL Hgb (11.4-16.0) gm/dL Hct (34.0-46.0) % MCV (80.0-100.0) fL MCH (25.0-35.0) pg MCHC (31.0-37.0) g/dL RDW (11.5-15.5) % Plt Count (150-450) k/uL MPV Neutrophils % % Lymphocytes % % Monocytes % % Eosinophils % % Basophils % % Neutrophils # (1.3-7.7) k/uL Lymphocytes # (1.0-4.8) k/uL Monocytes # (0-1.0) k/uL Eosinophils # (0-0.7) k/uL Basophils # (0-0.2) k/uL PT (9.0-12.0) sec INR (<1.2) APTT (22.0-30.0) sec Sodium 138 (137-145) mmol/L Potassium 4.1 (3.5-5.1) mmol/L Chloride 106 (98-107) mmol/L Carbon Dioxide 24 (22-30) mmol/L Anion Gap 8 mmol/L BUN 10 (7-17) mg/dL Creatinine 0.63 (0.52-1.04) mg/dL Est GFR (CKD-EPI)AfAm >90 (>60 ml/min/1.73 sqM) Est GFR (CKD-EPI)NonAf >90 (>60 ml/min/1.73 sqM) Glucose 91 (74-99) mg/dL Plasma Lactic Acid Gabe 1.5 (0.7-2.0) mmol/L Calcium 9.1 (8.4-10.2) mg/dL Total Bilirubin 0.2 (0.2-1.3) mg/dL AST 20 (14-36) U/L ALT 17 (4-34) U/L Alkaline Phosphatase 69 (38-126) U/L Total Protein 6.5 (6.3-8.2) g/dL Albumin 3.8 (3.5-5.0) g/dL Amylase 47 (30-110) U/L Lipase 51 (23-300) U/L HCG, Quant 1657.9 mIU/mL Urine Color Urine Appearance (Clear) Urine pH (5.0-8.0) Ur Specific [place] (1.001-1.035) Urine Protein (Negative) Urine Glucose (UA) (Negative) Urine Ketones (Negative) Urine Blood (Negative) Urine Nitrite (Negative) Urine Bilirubin (Negative) Urine Urobilinogen (<2.0) mg/dL Ur Leukocyte Esterase (Negative) Urine RBC (0-5) /hpf Urine WBC (0-5) /hpf Ur Squamous Epith Cells (0-4) /hpf Urine Bacteria (None) /hpf Urine Mucus (None) /hpf Blood Type Confirm O Positive Disposition Clinical Impression: Incomplete , Retained products of conception, Abdominal pain Disposition: ADMITTED IP TO THIS [facility] Condition: Stable Time of Disposition: 20:15
[2022-06-03 17:18] LABS: Basophils % (A) 0 %; Eosinophils # (A) 0.1 k/uL (0-0.7); Eosinophils % (A) 2 %; HCT 38.1 % (34.0-46.0); HGB 12.3 gm/dL (11.4-16.0); Lymphocytes # (A) 1.5 k/uL (1.0-4.8); Lymphocytes % (A) 16 %; MCH 28.8 pg (25.0-35.0); MCHC 32.2 g/dL (31.0-37.0); MCV 89.3 fL (80.0-100.0); Mean Platelet Volume 8.2; Monocytes # (A) 0.4 k/uL (0-1.0); Monocytes % (A) 5 %; Neutrophils % (A) 76 %; Platelet Count 331 k/uL (150-450); RBC 4.27 m/uL (3.80-5.40); RDW 13.4 % (11.5-15.5); WBC 9.2 k/uL (3.8-10.6)
[2022-06-03 17:24] LABS: Appearance,Urine Cloudy (Clear); Bacteria,Urine Rare /hpf; Bilirubin,Urine Negative (Negative); Blood,Urine Large (Negative); Color,Urine Yellow; Glucose,Urine (UA) Negative (Negative); Ketones,Urine Negative (Negative); Leukocyte Esterase,Urine Small (Negative); Mucus,Urine Rare /hpf; Nitrite,Urine Negative (Negative); PH, Urine 6.5 (5.0-8.0); Protein,Urine Trace (Negative); RBC,Urine 1 /hpf (0-5); Specific Gravity,Urine 1.022 (1.001-1.035); Squamous Epithelial Cell,Urine 10 /hpf (0-4); Urobilinogen,Urine <2.0 mg/dL (<2.0); WBC,Urine 7 /hpf (0-5)
[2022-06-03 17:27] LABS: INR 0.9 (<1.2); Partial Thromboplastin Time 23.1 sec (22.0-30.0); Prothrombin Time 10.2 sec (9.0-12.0)
[2022-06-03 17:31] LABS: ALT 17 U/L (4-34); AST 20 U/L (14-36); African American GFR (CKD) >90 (>60 ml/min/1.73 sqM); Albumin 3.8 g/dL (3.5-5.0); Alkaline Phosphatase 69 U/L (38-126); Amylase 47 U/L (30-110); Anion Gap 8 mmol/L; Blood Urea Nitrogen 10 mg/dL (7-17); Calcium 9.1 mg/dL (8.4-10.2); Carbon Dioxide 24 mmol/L (22-30); Chloride 106 mmol/L (98-107); Glucose 91 mg/dL (74-99); Lipase 51 U/L (23-300); Non-African American GFR(CKD) >90 (>60 ml/min/1.73 sqM); Potassium 4.1 mmol/L (3.5-5.1); Sodium 138 mmol/L (137-145); Total Bilirubin 0.2 mg/dL (0.2-1.3); Total Protein 6.5 g/dL (6.3-8.2)
[2022-06-03 17:47] LABS: HCG,Quantitative Serum 1657.9 mIU/mL
--- NOTE | 2022-06-03 18:35 | US ---
EXAMINATION TYPE: US abdomen APPY DATE OF EXAM: 06/03/2022 COMPARISON: US OB today 06/03/2022 CLINICAL HISTORY: abd pain. Abdominal pain. APPENDIX AP Diameter (normal < 6mm): mm Measured outer wall to outer wall. Hypoechoic-anechoic area seen in RLQ/ right adnexa that appears to be next to the right ovary, seen on pelvic ultrasound images today as well 06/03/22. This area measures 2.1 x 3.2 x 0.7 cm. ?Possible fluid versus other. Area did not peristalse. Appendix not visualized with certainty. Is there inflammatory changes or free fluid present: hypoechoic area with hyperechoic center seen in RLQ: 1.5 x 1.4 x 0.8 cm. Exam is limited due to body habitus. IMPRESSION: Appendix not seen. No sign of thickened appendix. Small elongated fluid collection noted measuring up to 7 mm in thickness of uncertain and doubtful significance.
--- NOTE | 2022-06-03 18:39 | US ---
EXAMINATION TYPE: Transabdominal DATE OF EXAM: 06/03/2022 6:15 PM COMPARISON: US abdomen appy today 06/03/22 CLINICAL HISTORY: abd pain, vag bleeding, miscarriage. Abdominal pain, vaginal bleeding, miscarriage per order. Hx C section, PCOS, . EXAM PERFORMED: Transvaginal (TV) and Transabdominal (TA) EXAM MEASUREMENTS: GESTATIONAL AGE / DATING Physician Established: Not yet established. Dates by LMP: (9 weeks/3 days) EDC: 01/03/2023 Dates by First Scan: This is first scan Dates by Current Scan for: Unable to date by today's study MATERNAL ANATOMY Uterus: 13.1 x 7.7 x 6.6 cm. Anteverted, appears enlarged. Complex material seen in cervix: 5.2 x 4.5 x 3.0 cm. Right Ovary: 4.2 x 2.5 x 3.0 cm. Left Ovary: 3.5 x 3.1 x 2.5 cm. Post CDS / Adnexa: Hypoechoic-anechoic area seen in RLQ/ right adnexa that appears to be next to th e right ovary, seen on abdomen appy ultrasound images today as well 06/03/22. This area measures 2.1 x 3.2 x 0.7 cm. ?Possible fluid versus other. Seen transabdominally only. Presence of free fluid: Possible in right adnexa. Presence of corpus luteal cyst: No GESTATION / SURVEY IUP: Complex material seen in cervix. No definite pole visualized at this time. Date of LMP: 03/29/2022 Beta HcG (if available): 1,657.9 mIU/mL IMPRESSION: Uterus is empty. The endometrium measures 15 mm. There is small elongated fluid collection adjacent t o the right ovary of uncertain significance. No solid adnexal mass. No evidence of ectopic .
--- NOTE | 2022-06-03 19:31 | CT ---
EXAMINATION TYPE: CT abdomen pelvis w con DATE OF EXAM: 06/03/2022 COMPARISON: None HISTORY: pt was 6 weeks , activly miscarrying CT DLP: 1593.9 mGycm Automated exposure control for dose reduction was used. CONTRAST: Performed with IV Contrast, patient injected with 100 mL of Isovue 300. Images obtained from the diaphragm to the floor of the pelvis with IV contrast. The lung bases are clear. No pleural effusion. Heart size is normal. No pericardial effusion. Liver spleen stomach pancreas gallbladder appear intact. The bile ducts are not dilated. There is no adrenal mass. Kidneys show satisfactory contrast opacification. There is no hydronephrosi s. Ureters are not dilated. Appendix is posterior and appears normal. No retroperitoneal adenopathy. Urinary bladder distends smoothly. No inguinal hernia. No free fluid in the pelvis. Uterus is antever deep. There is complex enlargement of the lower uterine segment canal and cervical canal region consis tent with in progress. The cervical canal measures 4 cm. There is no mesenteric edema. No ascites or free air. No sign of a bowel obstruction. Delayed images show normal renal excretion. The lumbar vertebrae have normal spacing and alignment. Posterior elements are intact. No compression fracture. Bony pelvis is intact. Hip joints are intact. IMPRESSION: There is evidence of in progress with gestational sac in the lower uterine segment and cervi phil canal.
[2022-06-03] MEDS ORDERED: MORPHINE SULFATE 4 MG/ML SYRINGE IV PRN (20:22)
[2022-06-03] MEDS ORDERED: NALOXONE 0.4 MG/ML 1 ML VIAL IV PRN (20:22)
[2022-06-03] MEDS ORDERED: ONDANSETRON 4 MG/2 ML VIAL IVP PRN (20:22)
[2022-06-04] MEDS: SODIUM CHLORIDE 0.9% 1,000 ML IV SCH ×2 (00:52→08:02)
[2022-06-04] MEDS: HEPARIN SODIUM,PORCINE/PF 5,000 UNIT/0.5 ML SYRINGE SQ SCH ×2 (01:28→08:09)
[2022-06-04 08:07] VITALS: BP 117/75; PULSE 91; RESP 16; TEMP 98.1
--- NOTE | 2022-06-04 08:42 | P.HPOB ---
History of Present Illness H&P Date: 06/04/22 Chief Complaint: Plus weeks, incomplete The patient is a 31-year-old 2 para 1001 who presented to the emergency room last evening with significant and intractable pain. She has had an ongoing 6+ week spontaneous which began of 2 days prior to presentation. Her bleeding had been moderate for 24 hours and then essentially resolved. The patient then began to experience severe and significant pain, primarily on the right side. The pain was severe enough to lead to nausea and vomiting. She was instructed to go to the emergency room and, while on her way, had to stop and: Ambulance for further transport secondary to the degree of pain. In the hospital, the patient underwent both ultrasound and computed tomography scan which demonstrated probable retained products of conception. The patient was admitted for 20 3R observation with the intention of proceeding with D&C. Since admission, she passed what she believes is the gestational tissue and has had resolution of her pain such that she has not required pain medication since last evening. Bleeding at this time is minimal but still present. Cramping is minimal. Obstetrical history: 2 para 1001 with 1 term section without complications. Current statistics are listed in above in history present illness. Gynecologic history: Noncontributory Review of Systems Review of systems is confined to history of present illness. Past Medical History Past Medical History: No Reported History Additional Past Medical History / Comment(s): Hx pulmonary valve stenosis at . slightly elevated b/p R/T Rx in past. Multiple Sclerosis, NT BLE. 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, Dental procedures Past Anesthesia/Blood Transfusion Reactions: No Reported Reaction Past Psychological History: Depression Additional Psychological History / Comment(s): in past Smoking Status: Never smoker Past Alcohol Use History: Rare Past Drug Use History: None Reported - Past Family History Father Family Medical History: No Reported History Brother(s) Family Medical History: Cancer Additional Family Medical History / Comment(s): skin cancer Medications and Allergies Home Medications Medication Instructions Recorded Confirmed Type Acetaminophen-Codeine 300-30mg 1 - 2 tab PO Q6H PRN 06/03/22 06/03/22 History [Tylenol w/codeine #3] Cholecalciferol [Vitamin D3 (25 50 mcg PO DAILY 06/03/22 06/03/22 History Mcg = 1000 Iu)] Multivitamins, Thera [Multivitamin 1 tab PO DAILY 06/03/22 06/03/22 History (formulary)] Allergies Allergy/AdvReac Type Severity Reaction Status Date / Time No Known Allergies Allergy Verified 06/03/22 17:46 Exam Vital Signs Temp Pulse Pulse Resp BP BP Pulse Ox 06/04/22 08:16 98.1 F 91 16 117/75 06/04/22 08:07 98.1 F 91 16 117/75 06/04/22 00:30 98.2 F 84 18 132/88 100 06/03/22 18:29 94 20 132/84 98 06/03/22 16:15 98.0 F 81 20 138/88 99 Intake and Output 06/03/22 06/04/22 06/04/22 22:59 06:59 14:59 Other: # Voids 2 Weight 95.254 kg 95.254 kg In general, this is a well-developed, well-nourished white female in no acute distress. Her heart has a regular rhythm and rate without murmur. Her lungs clear to auscultation bilaterally in all [place]. Her abdomen is nondistended, soft, nontender, without any palpable masses. Her extremities are without any cyanosis, clubbing, or edema and are nontender to palpation bilaterally. Pelvic examination is deferred. Results Result Diagrams: 06/03/22 17:03 06/03/22 17:03 Abnormal Lab Results - Last 24 Hours (Table) 06/03/22 Range/Units 17:03 Urine Appearance Cloudy H (Clear) Urine Protein Trace H (Negative) Urine Blood Large H (Negative) Ur Leukocyte Esterase Small H (Negative) Urine WBC 7 H (0-5) /hpf Ur Squamous Epith Cells 10 H (0-4) /hpf Urine Bacteria Rare H (None) /hpf Urine Mucus Rare H (None) /hpf Assessment and Plan (1) Incomplete Current Visit: Yes Status: Acute Code(s): O03.4 - INCOMPLETE SPONTANEOUS WITHOUT COMPLICATION SNOMED Code(s): 010635353 (2) Retained products of conception Current Visit: Yes Status: Acute Code(s): CMC2428 - SNOMED Code(s): 170856372 Plan: As the patient's pain has resolved and she passed what she feels was the gestational tissue last night, we will allow her to eat and discharge her to home to follow her symptoms there. Should she have a return no significant pain or symptoms, she will be added to my surgical schedule tomorrow. Discharge instructions included calling for any significantly increased pain, bleeding, or anything also concerned her. She additionally should abstain from anything in the vagina until at least 2 weeks from now and resolution of the ongoing condition. She understood her instructions and agrees to follow up as noted above. Discharge medications included only those she had at home.
--- NOTE | 2022-06-04 08:44 | P.DS ---
Providers Date of admission: 06/03/22 20:20 Expected date of discharge: 06/04/22 Attending physician: Jaswinder Edmonds Primary care physician: Sujit Perez - Discharge Diagnosis(es) (1) Incomplete Current Visit: Yes Status: Acute (2) Retained products of conception Current Visit: Yes Status: Acute Hospital Course: The patient is a 31-year-old 2 para 1001 who presented to the hospital with a known ongoing spontaneous miscarriage at 6+ weeks. She presented secondary to a significant increase in pain that was present refractory to Tylenol No. 3 at home., Given the degree of her pain in the emergency room and findings consistent with possible retained products of conception or incomplete , she was admitted for 23 hour observation with the intention of adding her to the surgical schedule this morning for D&C. Overnight, she passed tissue and has had almost complete resolution of her discomfort with only minimal ongoing bleeding. She is otherwise completely hemodynamically stable. After discussion, we have opted to discharge her to home to follow her symptoms as an outpatient and follow her hCG to 0. Discharge instructions included calling for any increasing bleeding, pain, or anything else that concerned her. She understood her instructions and agrees to follow up as noted above. Admission hemoglobin and hematocrit were 12.3 and 38.1 respectively with minimal bleeding since that time and therefore have not been repeated. Procedures: #1. 23 observation #2. IV pain control Patient Condition at Discharge: Stable Plan - Discharge Summary New Discharge Prescriptions: No Action Acetaminophen-Codeine 300-30mg [Tylenol w/codeine #3] 1 - 2 tab PO Q6H PRN PRN Reason: Pain Multivitamins, Thera [Multivitamin (formulary)] 1 tab PO DAILY Cholecalciferol [Vitamin D3 (25 Mcg = 1000 Iu)] 50 mcg PO DAILY Discharge Medication List Acetaminophen-Codeine 300-30mg [Tylenol w/codeine #3] 1 - 2 tab PO Q6H PRN 06/03/22 [History] Cholecalciferol [Vitamin D3 (25 Mcg = 1000 Iu)] 50 mcg PO DAILY 06/03/22 [History] Multivitamins, Thera [Multivitamin (formulary)] 1 tab PO DAILY 06/03/22 [History] Follow up Appointment(s)/Referral(s): Sujit Perez MD [Primary Care Provider] - 1-2 days
[2022-06-04 09:49] LABS: Basophils % (A) 1 %; Eosinophils # (A) 0.2 k/uL (0-0.7); Eosinophils % (A) 3 %; HCT 37.3 % (34.0-46.0); HGB 12.3 gm/dL (11.4-16.0); Lymphocytes # (A) 1.8 k/uL (1.0-4.8); Lymphocytes % (A) 25 %; MCH 29.3 pg (25.0-35.0); Mean Platelet Volume 9.3; Monocytes # (A) 0.4 k/uL (0-1.0); Monocytes % (A) 6 %; Neutrophils # (A) 4.5 k/uL (1.3-7.7); Neutrophils % (A) 64 %; Platelet Count 292 k/uL (150-450); RBC 4.19 m/uL (3.80-5.40); RDW 13.6 % (11.5-15.5)
[2022-06-04 11:40] LABS: African American GFR (CKD) >90 (>60 ml/min/1.73 sqM); Anion Gap 5 mmol/L; Blood Urea Nitrogen 8 mg/dL (7-17); Carbon Dioxide 23 mmol/L (22-30); Chloride 109 mmol/L (98-107); Glucose 92 mg/dL (74-99); Non-African American GFR(CKD) >90 (>60 ml/min/1.73 sqM); Potassium 4.5 mmol/L (3.5-5.1); Sodium 137 mmol/L (137-145)
== END 2022-06-04 12:43 | disposition home or self-care (01) ==
LOC: EC 16:12 → 4FBP 20:20
PROVIDERS: ADMIT Obstetrics & Gynecology; ATTEND Obstetrics & Gynecology
DX: O03.4 Incomplete spontaneous abortion without complication (principal); G35 Multiple sclerosis; Q22.1 Congenital pulmonary valve stenosis; K64.9 Unspecified hemorrhoids; F32.A Depression, unspecified; Z98.891 History of uterine scar from previous surgery; Z98.890 Other specified postprocedural states; Z80.8 Family history of malignant neoplasm of other organs or systems
CPT/HCPCS: 96376; 96372; 96374; 96375; 99285; 36415; 86900; 86901; 80053; 80048; 82150; 83605; 83690; 85025 ×2; 85610; 85730; 86850; 81001; 84702; 76705; 76801; 76817; 74177; G0378 ×2; J2270 ×2; J1200; J2405; J1885; C9113; Q9967; J1644

== ENCOUNTER → 2022-06-05 | Day surgery (SDC) | payer OTHER ==
[~2022-06-05] MED LIST changes: +Acetaminophen-Codeine 300-30mg TAB PO PRN; +DEXAMETHASONE SOD PHOSPHATE 4 MG/ML 1 ML VIAL IVP ONE; +HYDROmorphone 0.5 MG/0.5 ML SYRINGE IVP ONE; +IBUPROFEN 600 MG TAB PO PRN; +KETOROLAC 15 MG/ML 1 ML VIAL IVP PRN; +LACTATED RINGERS 1,000 ML IV ONE; +LACTATED RINGERS 1,000 ML IV SCH; +LIDOCAINE 2% INJ 20 MG/ML (2 ML VIAL) ONE; +METOCLOPRAMIDE 5 MG/ML 2 ML VIAL IVP PRN; +MIDAZOLAM 2 MG/2 ML VIAL ONE; +ONDANSETRON 4 MG/2 ML VIAL IVP ONE; +ONDANSETRON 4 MG/2 ML VIAL IVP PRN; +ONDANSETRON 4 MG/2 ML VIAL ONE; +PROPOFOL 10 MG/ML 20 ML VIAL IV ONE; +Pre Op ABX Message 1 EACH MISC MISCELLANE ONE; +SIMETHICONE 80 MG CHEWABLE PO PRN; -cefTRIAXone 500 MG VIAL IM NR; +diphenhydrAMINE 50 MG/ML 1 ML VIAL IVP PRN; +fentaNYL (PF) 50 MCG/ML 2 ML AMP ONE
--- NOTE | 2022-06-05 08:59 | P.HPOB ---
History of Present Illness H&P Date: 06/05/22 Chief Complaint: 6+ weeks incomplete See previously dictated H&P. Past Medical History Past Medical History: No Reported History Additional Past Medical History / Comment(s): Hx pulmonary valve stenosis at . slightly elevated b/p R/T Rx in past. 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, Dental procedures Past Anesthesia/Blood Transfusion Reactions: No Reported Reaction Smoking Status: Never smoker - Past Family History Father Family Medical History: No Reported History Brother(s) Family Medical History: Cancer Additional Family Medical History / Comment(s): skin cancer Medications and Allergies Home Medications Medication Instructions Recorded Confirmed Type Acetaminophen-Codeine 300-30mg 1 - 2 tab PO Q6H PRN 06/03/22 06/05/22 History [Tylenol w/codeine #3] Cholecalciferol [Vitamin D3 (25 50 mcg PO DAILY 06/03/22 06/05/22 History Mcg = 1000 Iu)] Multivitamins, Thera [Multivitamin 1 tab PO DAILY 06/03/22 06/05/22 History (formulary)] Allergies Allergy/AdvReac Type Severity Reaction Status Date / Time No Known Allergies Allergy Verified 06/04/22 13:22 Exam See previous H&P. Assessment and Plan (1) Incomplete Current Visit: Yes Status: Acute Code(s): O03.4 - INCOMPLETE SPONTANEOUS WITHOUT COMPLICATION SNOMED Code(s): 650118499 (2) Retained products of conception Current Visit: Yes Status: Acute Code(s): UKH6194 - SNOMED Code(s): 192488703 Plan: As the patient appeared to have passed tissue while an inpatient approximate 36 hours ago and her pain had significantly subsided as did her bleeding, the decision was made to allow her to return to home and follow her symptoms. Prior to discharge, the patient requested that she be added to the surgical schedule regardless as she continued to have some cramping and bleeding was concerned about the possibility of further retained products. As a result, she was admitted to the surgical schedule for today for dilation and aspiration curettage. The risks and complications the procedure been thoroughly discussed including the risk for bleeding, bleeding, transfusion, infection, and injury to local structures to specifically include uterine perforation and potential Asherman syndrome. She understood all these concerns and has agrees to proceed. This is to serve as an addendum to the previously dictated H&P which details all of the issues of the case.
--- NOTE | 2022-06-05 09:57 | P.OP ---
Date of Procedure: 06/05/22 Preoperative Diagnosis: #1. 6+ week incomplete Postoperative Diagnosis: Same. Procedure(s) Performed: #1. Dilation and aspiration curettage Anesthesia: other (Gen. by LMA) Surgeon: Jaswinder Edmonds Estimated Blood Loss (ml): 50 IV fluids (ml): 200 Urine output (ml): 100 Pathology: other (Intrauterine contents) Condition: stable Disposition: PACU Operative Findings: Gravid pelvic examination demonstrated a roughly 6-7 week midplane to slightly anteverted mobile normal shaped uterus with normal adnexa bilaterally. The cervical os was open slightly. Intraoperatively, the os easily admitted a #14 Hegar dilator. A #8 curved aspiration curet was utilized and tissues clearly seen passing through the tubing on the first pass and the first pass only. The typical gritty texture was encountered with sharp curettage. Description of Procedure: The patient was prepped and draped in usual fashion after general anesthesia was administered by the anesthesiologist. A weighted speculum was placed and the bladder drained of approximately 100 mL of clear gudelia urine. The anterior lip the cervix was grasped with a single-tooth tenaculum and the cervix was dilated enough to admit a #14 Hegar dilator without difficulty after having sounded the uterus to 9 cm depth. Serial dilation was carried out to approximate #18 dilator. A #8 curved aspiration curet was placed through the cervix to the fundus of the uterus and suction applied. After adequate suction had been built, thorough and circumferential aspiration curettage was carried out from the fundus to the cervix with tissue very clearly is being seen passing through the tubing. A second pass was made at which time no further tissue was noted. The aspiration curet was set aside in favor of a medium sharp curet. The sharp curet was introduced into the endometrial cavity and there was thorough and circumferential sharp curettage carried out with no tissue being noted in the typical gritty texture encountered throughout. One last pass was made with the aspiration curet at which time again no further tissue was noted. All instrumentation was removed. There was no ongoing bleeding from the tenaculum sites and minimal ongoing bleeding from the cervix. Estimated blood loss for the case was 50 mL or less. There were no complications. All sponge, instrument, and needle counts were correct. The patient tolerated the procedure well and proceeded to the recovery room in stable condition.
[2022-06-05 09:58] VITALS: TEMP 97.5
[2022-06-05 11:38] VITALS: BP 120/78; PULSE 88; RESP 16
== END | disposition home or self-care (01) ==
LOC: OR 08:22
PROVIDERS: ATTEND Obstetrics & Gynecology
DX: O03.4 Incomplete spontaneous abortion without complication (principal); Q22.2 Congenital pulmonary valve insufficiency; G35 Multiple sclerosis; Z80.8 Family history of malignant neoplasm of other organs or systems; Z79.899 Other long term (current) drug therapy
CPT/HCPCS: 88305; 59812; J2250; J1100; J2405; J3010; J2704; J1170; J2001

== ENCOUNTER → 2022-12-08 | Outpatient (CLI) | payer OTHER ==
[2022-12-08 16:09] LABS: Basophils # (A) 0.04 X 10*3/uL (0.00-0.10); Basophils % (A) 0.7 %; Eosinophils # (A) 0.23 X 10*3/uL (0.04-0.35); Eosinophils % (A) 4.2 %; HCT 40.7 % (37.2-46.3); Immature Grans, Automated 0 %; Lymphocytes # (A) 2.24 X 10*3/uL (0.90-5.00); Lymphocytes % (A) 40.7 %; MCH 27.7 pg (27.0-32.0); MCHC 31.9 g/dL (32.0-37.0); MCV 86.8 fL (80.0-97.0); Mean Platelet Volume 11.1 fL (9.5-12.2); Monocytes # (A) 0.49 X 10*3/uL (0.20-1.00); Monocytes % (A) 8.9 %; NRBC Per 100 WBC 0 /100 WBCS (0.0-0.0); Neutrophils # (A) 2.51 X 10*3/uL (1.80-7.70); Neutrophils % (A) 45.5 %; Platelet Count 288 X 10*3/uL (140-440); RBC 4.69 X 10*6/uL (4.10-5.20); RDW 13.9 % (11.5-14.5); WBC 5.51 X 10*3/uL (4.50-10.00)
[2022-12-08 16:46] LABS: African American GFR (CKD) 137.8 (60.0-200.0); Albumin 4.5 g/dL (3.8-4.9); Albumin/Globulin Ratio 1.45 (1.60-3.17); Anion Gap 11.5 mmol/L (10.00-18.00); Blood Urea Nitrogen 9.6 mg/dL (9.0-27.0); Calcium 9.7 mg/dL (8.7-10.3); Carbon Dioxide 23.5 mmol/L (20.0-27.5); Globulin 3.1 g/dL (1.6-3.3); Non-African American GFR(CKD) 118.9 (60.0-200.0); Potassium 4.8 mmol/L (3.5-5.5); Total Bilirubin 0.3 mg/dL (0.30-1.20); Total Protein 7.6 g/dL (6.2-8.2)
== END | disposition home or self-care (01) ==
LOC: LABWHC1 09:55
PROVIDERS: ATTEND Nurse Practitioner Acute Care
DX: E55.9 Vitamin D deficiency, unspecified (principal); E53.9 Vitamin B deficiency, unspecified; G35 Multiple sclerosis; R42 Dizziness and giddiness; R53.83 Other fatigue
CPT/HCPCS: 36415; 80053; 82306; 82607; 84207; 85025

== ENCOUNTER → 2025-03-17 | Outpatient (CLI) | payer BC ==
[2025-03-17 15:38] LABS: Basophils # (A) 0.06 X 10*3/uL (0.00-0.10); Basophils % (A) 0.6 %; Eosinophils # (A) 0.38 X 10*3/uL (0.04-0.35); HCT 38.1 % (37.2-46.3); HGB 12.9 g/dL (12.0-15.0); Lymphocytes # (A) 3.96 X 10*3/uL (0.90-5.00); Lymphocytes % (A) 41.2 %; MCH 28.8 pg (27.0-32.0); MCHC 33.9 g/dL (32.0-37.0); Mean Platelet Volume 11.2 FL (9.5-12.2); Monocytes # (A) 0.73 X 10*3/uL (0.20-1.00); Monocytes % (A) 7.6 %; NRBC Per 100 WBC 0.02 X 10*3/uL (0.00-0.01); Neutrophils # (A) 4.44 X 10*3/uL (1.80-7.70); Neutrophils % (A) 46.2 %; Platelet Count 276 X 10*3/uL (140-440); RBC 4.48 X 10*6/uL (4.10-5.20); RDW 15.8 % (11.5-14.5); WBC 9.61 X 10*3/uL (4.50-10.00)
[2025-03-17 15:57] LABS: Hepatitis B Surface Antigen Nonreactive (Nonreactive)
[2025-03-17 16:15] LABS: BUN/Creat Ratio 16.29 Ratio (12.00-20.00); Blood Urea Nitrogen 11.4 mg/dL (9.0-27.0); Carbon Dioxide 19.5 mmol/L (21.6-31.8); Chloride 108 mmol/L (96-109); Glucose 95 mg/dL (70-110); Potassium 4.1 mmol/L (3.5-5.5); Sodium 139 mmol/L (135-145)
[2025-03-17 16:16] LABS: ALT 26 U/L (8-44); AST 20 U/L (13-35); Albumin 4.1 g/dL (3.8-4.9); Albumin/Globulin Ratio 1.41 Ratio (1.60-3.17); Alkaline Phosphatase 88 U/L (41-126); Calcium 9.3 mg/dL (8.7-10.3); Globulin 2.9 g/dL (1.6-3.3); Total Bilirubin <0.2 mg/dL (0.3-1.2)
[2025-03-17 16:17] LABS: Hepatitis B Surface AB- Quant 32.4 mIU/mL
== END | disposition home or self-care (01) ==
LOC: LABWHC1 09:25
PROVIDERS: ATTEND Psychiatry & Neurology Neurology
DX: Z76.89 Persons encountering health services in other specified circumstances (principal); G35 Multiple sclerosis
CPT/HCPCS: 36415; 80053; 82784; 85025; 86480; 86704; 86706; 87340